=== PATIENT | female | born 1995 | race Caucasian/White ===

== ENCOUNTER → 2020-12-04 09:06 | Outpatient (CLI) | payer BC, SELFPAY ==
[2020-12-04 10:13] LABS: Add Manual Diff / Slide Review NO; Basophils Absolute Auto 0 /uL (0-100); Basophils Percent Auto 0.7 % (0-2); Eosinophils Absolute Auto 100 /uL (0-450); Hemoglobin 10.4 g/dL (12.0-16.0); Lymphocytes Absolute Auto 1500 /uL (1100-4500); Lymphocytes Percent Auto 21.1 % (25-40); Mean Corpuscular HGB Conc 31.5 % (30-36); Mean Corpuscular Volume 72.9 fL (80-100); Monocytes Absolute Auto 400 /uL (0-900); Monocytes Percent Auto 5.8 % (3-14); Neutrophils Absolute Auto 5200 /uL (1500-7000); Neutrophils Percent Auto 71.4 % (50-75); Platelet Count 301 X10^3/uL (150-400); Red Blood Cell Count 4.53 X10^6/uL (4.0-5.2); Red Cell Distribution Width 18.3 % (11.6-14.8); White Blood Cell Count 7.3 X10^3/uL (4.5-11.0)
[2020-12-04 10:29] LABS: Alanine Aminotransferase 15 IU/L (<35); Albumin 4.4 g/dL (3.5-5.0); Albumin Globulin Ratio 1.6 (1.0-2.8); Alkaline Phosphatase 51 U/L (38-126); Aspartate Aminotransferase 24 IU/L (14-36); BUN Creatinine Ratio 15.5 (6-22); Bilirubin Total 0.2 mg/dL (0.2-1.3); Blood Urea Nitrogen 11 mg/dL (7-17); Calcium 9.3 mg/dL (8.4-10.2); Carbon Dioxide 28 mmol/L (22-32); Chloride 107 mmol/L (98-107); Estimated Glomerular Filt Rate > 60.0 mL/min (>60); Globulin 2.8 g/dL (1.7-4.1); Glucose 101 mg/dL (70-100); HEMOLYSIS < 15 (0-50); Potassium 3.9 mmol/L (3.4-5.1); Sodium 139 mmol/L (137-145); Total Protein 7.2 g/dL (6.3-8.2)
[2020-12-04 10:56] LABS: Ferritin 4 ng/mL (6-137); Pregnancy Test Urine Negative (Negative)
[2020-12-04 11:28] LABS: Total Iron Binding Capacity 513 ug/dL (265-497); Transferrin 388 mg/dL (206-381)
[2020-12-04 11:48] LABS: TSH w/ Reflex to FT4 1.81 uIU/mL (0.47-4.68)
[2020-12-05 16:25] LABS: HEMOLYSIS < 15 (0-50); Iron 20 ug/dL (37-170); Percent Iron Saturation 4 % (15-50)
[2020-12-05 18:26] LABS: Deamidated Gliadin Ab IgA 3 units (0-19); Deamidated Gliadin Ab IgG 2 units (0-19); Immunoglobulin A,Qn 205 mg/dL (87-352); t-Transglutaminase IgA <2 U/mL (0-3)
[2020-12-06 07:56] LABS: Interpretation Negative (Negative)
== END ==
PROVIDERS: PCP Family Medicine; Referring Provider Family Medicine; Visit Provider Family Medicine
DX: D50.9 Iron deficiency anemia, unspecified (principal); F41.8 Other specified anxiety disorders; R11.0 Nausea; R53.83 Other fatigue
CPT/HCPCS: 36415; 80053; 81025; 82728; 82784; 83013; 83516; 83540; 83550; 84443; 85025

== ENCOUNTER → 2020-12-06 08:13 | Outpatient (CLI) | payer BC, SELFPAY ==
--- NOTE | 2020-12-06 08:19 | DI.US.S_ITS ---
PROCEDURE: US PELVIC COMPLETE INDICATIONS: PAIN TECHNIQUE: Real-time scanning was performed of the pelvic organs, with image documentation. Additional endovaginal scanning was necessary due to incomplete visualization of the adnexal and endometrial structures by transabdominal scanning. COMPARISON: None. FINDINGS: Uterus: Uterus is normal in size at 7.5 x 3.4 x 5.4 cm. The endometrium measures 9 mm in combined thickness. Ovaries: The left ovary is not seen. The right ovary measures 4.5 x 2.2 x 3.7 cm. More than 12 follicles can be seen involving the right ovary. There is a simple appearing dominant cystic follicle involving the right ovary that measures up to 1.4 cm. Other: No pathologic free abdominal or pelvic fluid. IMPRESSION: The left ovary is a seen. More than 12 follicles can be seen involving the right ovary, which is consistent with polycystic ovarian syndrome. Please correlate with known patient history. Unremarkable uterus. Dictated by: Flavio Reynolds M.D. on 12/06/2020 at 8:39 Approved by: Flavio Reynolds M.D. on 12/06/2020 at 8:40
== END ==
PROVIDERS: PCP Family Medicine; Referring Provider Family Medicine; Visit Provider Family Medicine
DX: N83.8 Other noninflammatory disorders of ovary, fallopian tube and broad ligament (principal); N83.201 Unspecified ovarian cyst, right side
CPT/HCPCS: 76856